=== PATIENT | female | born 1965 | race African-American/Black ===

== ENCOUNTER 2019-02-08 06:56 | Emergency (ER) | payer MEDICAID ==
[~2019-02-08] VITALS: Ht 162.6 cm; Wt 145.1 kg
[~2019-02-08 06:56] MED LIST: ALL100T PO; ASPI81TA10 PO; FURO40TA4 PO; LORA10CA12 PO; LOSA-46 PO; METF-370 PO; METO-169 PO; POTA10TA51 PO; SIMV-8 PO
[2019-02-08 07:05] VITALS: BP 137/54
== END 2019-02-08 08:06 | disposition home or self-care (01) ==
LOC: ER 07:01
DX: H10.31 Unspecified acute conjunctivitis, right eye (principal); E11.9 Type 2 diabetes mellitus without complications; E78.5 Hyperlipidemia, unspecified; I10 Essential (primary) hypertension; F17.200 Nicotine dependence, unspecified, uncomplicated; Z79.899 Other long term (current) drug therapy

== ENCOUNTER 2021-09-26 01:36 | Inpatient (IN) | payer OTHER, MEDICAID ==
[~2021-09-26] VITALS: Ht 162.6 cm; Wt 152.2 kg
[~2021-09-26 01:36] MED LIST changes: -LOSA-46 PO; +LOSA-69 PO; -METO-169 PO; +METO-289 PO
[2021-09-26] MEDS ORDERED: predniSONE 20 MG TAB PO ONE (03:00)
[2021-09-26] MEDS ORDERED: IPRATROPIUM BROM 0.5 MG/2.5ML INH SOL NEB ONE ×2 (03:00→19:30)
[2021-09-26] MEDS ORDERED: AZITHROMYCIN 250 MG TAB PO ONE (03:00)
[2021-09-26] MEDS ORDERED: ALBUTEROL SULF 2.5 MG/0.5ML(0.5%) NEB SOLN NEB ONE ×2 (03:00→05:45)
[2021-09-26 03:09] LABS: Basophils # (auto) 0.1 10 ^3/uL (0-0.2); Basophils % (auto) 0.6 % (0.0-2.0); Eosinophils # (auto) 0.2 10 ^3/uL (0-0.8); Eosinophils % (auto) 1.8 % (0.0-7.0); Hematocrit 37.1 % (36.0-46.0); Hemoglobin 11.8 g/dL (12.2-16.2); Lymphocytes # (auto) 1.4 10 ^3/uL (0.4-5.4); Lymphocytes % (auto) 15.3 % (10.0-50.0); Mean Corpuscular Hemoglobin 27.5 pg (28.0-32.0); Mean Corpuscular Hgb Conc. 31.8 g/dL (32.0-36.0); Mean Corpuscular Volume 86.6 fL (80.0-100.0); Monocytes # (auto) 0.9 10 ^3/uL (0-1.3); Monocytes % (auto) 9.6 % (0.0-12.0); Neutrophils # (auto) 6.7 10 ^3/uL (1.6-8.6); Neutrophils % (auto) 72.7 % (37.0-80.0); Nucleated Red Blood Cells % 0.2 %; Red Blood Cells 4.28 10^6/uL (4.0-5.20); White Blood Cell 9.2 10^3/uL (4.4-10.8)
[2021-09-26 03:15] LABS: Red Cell Distribution Width 20.3 % (11.8-14.3)
[2021-09-26] MEDS ORDERED: ACETAMINOPHEN 325 MG TAB PO ONE (03:15)
[2021-09-26 03:24] LABS: Potassium 4.3 mmol/L (3.5-5.1)
[2021-09-26 03:28] LABS: Albumin 3.1 g/dL (3.4-5.0); BUN/Creatinine Ratio 17.8; Calcium 8.8 mg/dL (8.5-10.1)
[2021-09-26 04:22] LABS: Bilirubin, Total 0.6 mg/dL (0.2-1.0); Total Protein 7.8 g/dL (6.4-8.2)
[2021-09-26] MEDS ORDERED: cefTRIAXone 1GM/50ML D5W 50 ML IV ONE (05:45)
[2021-09-26] MEDS ORDERED: IPRATROPIUM BROM 0.5 MG/2.5ML INH SOL ONE (05:53)
[2021-09-26] MEDS ORDERED: MORPHINE SULFATE INJECTION 2 MG/ML SYRG IV PRN ×2 (10:45→19:30)
[2021-09-26] MEDS ORDERED: NITROGLYCERIN 0.4 MG SL TAB SL PRN (10:45)
[2021-09-26] MEDS ORDERED: DEXTROSE (50%) 50ML SYRG IV PRN (14:15)
[2021-09-26] MEDS ORDERED: APIX5TAB PO (15:52)
[2021-09-26 16:00] VITALS: BP 93/58
[2021-09-26] MEDS: ACCU-CHEK COMFORT CURVE STRIP VI SCH ×2 (17:00→22:40)
[2021-09-26] MEDS: InsuLIN REG 1unit/0.01ml Soln (100units/ml) SC SCH ×2 (17:00→22:00)
[2021-09-26 18:28] VITALS: BP 113/62
[2021-09-26] MEDS ORDERED: MULTIPLE VITAMINS W/ MINERALS TAB PO ONE (19:30)
[2021-09-26] MEDS ORDERED: PANTOPRAZOLE 40 MG/10 ML VIAL INJ IV ONE (19:30)
[2021-09-26] MEDS ORDERED: METOCLOPRAMIDE HCL 5MG/ml INJ 2ml VIAL IV PRN (19:30)
[2021-09-26] MEDS ORDERED: DOCUSATE SOD 100 MG CAP PO PRN (19:30)
[2021-09-26] MEDS ORDERED: ONDANSETRON HCL 4 MG/2 ML VIAL IV PRN (19:30)
[2021-09-26] MEDS ORDERED: THIAMINE 100mg/ml INJ (200mg/2ml VIAL) IV ONE (19:30)
[2021-09-26] MEDS ORDERED: LORazepam 0.5 MG TAB PO PRN (19:30)
[2021-09-26] MEDS ORDERED: METOPROLOL SUCCINATE XL 50 MG TAB PO ONE (19:30)
[2021-09-26] MEDS ORDERED: SUCRALFATE 1 GM/10 ML ORAL SUSP PO ONE (19:30)
[2021-09-26] MEDS ORDERED: FOLIC ACID 1 MG TAB PO ONE (19:30)
[2021-09-26] MEDS ORDERED: LACTULOSE 20Gm/30ML SOLN PO PRN (19:30)
[2021-09-26 22:00] VITALS: BP 135/65
[2021-09-26] MEDS ORDERED: IPRATROPIUM BROM 0.5 MG/2.5ML INH SOL NEB SCH (22:00)
[2021-09-26] MEDS: PANTOPRAZOLE 40 MG/10 ML VIAL INJ IV SCH (22:38)
[2021-09-26] MEDS: APIXABAN 5 MG TAB PO SCH (22:39)
[2021-09-26] MEDS: SUCRALFATE 1 GM/10 ML ORAL SUSP PO SCH (22:39)
[2021-09-26] MEDS: ATORVASTATIN 20 MG TAB PO SCH (22:40)
[2021-09-26] MEDS: ISOSORBIDE MONONITRATE 20 MG TAB PO SCH (22:54)
[2021-09-26] MEDS: FUROSEMIDE 20 MG/2 ML VIAL IV SCH (23:07)
[2021-09-26] MEDS: POTASSIUM CHL 20 Meq TABLET PO SCH (23:08)
[2021-09-26 23:52] LABS: INR 1.1 (0.9-1.15); Partial Thromboplastin Time 26.5 sec (23.6-33.0)
[2021-09-26 23:54] LABS: Magnesium 2.6 mg/dL (1.6-2.6); Phosphorus 3.4 mg/dL (2.5-4.90)
[2021-09-27] MEDS ORDERED: IPRATROPIUM BROM 0.5 MG/2.5ML INH SOL NEB SCH
[2021-09-27] MEDS ORDERED: IPRATROPIUM BROM 0.5 MG/2.5ML INH SOL NEB PRN (01:00)
[2021-09-27] MEDS ORDERED: ALBUTEROL SULF 2.5 MG/0.5ML(0.5%) NEB SOLN NEB PRN (01:00)
[2021-09-27 05:00] VITALS: BP 117/69
[2021-09-27 05:53] LABS: Basophils # (auto) 0.1 10 ^3/uL (0-0.2); Basophils % (auto) 1.3 % (0.0-2.0); Eosinophils # (auto) 0.1 10 ^3/uL (0-0.8); Eosinophils % (auto) 1.9 % (0.0-7.0); Hematocrit 35.8 % (36.0-46.0); Hemoglobin 11.5 g/dL (12.2-16.2); Lymphocytes # (auto) 1.3 10 ^3/uL (0.4-5.4); Lymphocytes % (auto) 18.6 % (10.0-50.0); Mean Corpuscular Hemoglobin 27.7 pg (28.0-32.0); Mean Corpuscular Hgb Conc. 32.2 g/dL (32.0-36.0); Monocytes # (auto) 0.7 10 ^3/uL (0-1.3); Monocytes % (auto) 9.9 % (0.0-12.0); Neutrophils # (auto) 4.7 10 ^3/uL (1.6-8.6); Neutrophils % (auto) 68.3 % (37.0-80.0); Nucleated Red Blood Cells % 0.1 %; Red Blood Cells 4.17 10^6/uL (4.0-5.20); Red Cell Distribution Width 19.9 % (11.8-14.3); White Blood Cell 6.9 10^3/uL (4.4-10.8)
[2021-09-27] MEDS: SUCRALFATE 1 GM/10 ML ORAL SUSP PO SCH ×2 (06:11→11:52)
[2021-09-27] MEDS: ACCU-CHEK COMFORT CURVE STRIP VI SCH ×4 (06:11→22:12)
[2021-09-27] MEDS: FUROSEMIDE 20 MG/2 ML VIAL IV SCH ×2 (06:11→17:34)
[2021-09-27] MEDS: InsuLIN REG 1unit/0.01ml Soln (100units/ml) SC SCH ×4 (06:11→22:00)
[2021-09-27 06:12] LABS: INR 1.11 (0.9-1.15); Partial Thromboplastin Time 26.2 sec (23.6-33.0)
[2021-09-27 06:15] LABS: Albumin 2.9 g/dL (3.4-5.0); Calcium 8.6 mg/dL (8.5-10.1); Magnesium 2.6 mg/dL (1.6-2.6); Potassium 4.3 mmol/L (3.5-5.1)
[2021-09-27 06:23] LABS: BUN/Creatinine Ratio 19.4; Bilirubin, Total 0.5 mg/dL (0.2-1.0); CRP High Sensitivity 4.51 mg/dL (< 0.3); Phosphorus 3.2 mg/dL (2.5-4.90); Total Protein 7.8 g/dL (6.4-8.2); Uric Acid 8.5 mg/dL (2.6-6.0)
[2021-09-27 06:57] LABS: Thyroid Stimulating Hormone 1.12 uIU/mL (0.358-3.74)
[2021-09-27 07:58] LABS: Alcohol, Urine < 3.0 mg/dL (0-10); Amphetamine Screen, Urine NEGATIVE (NEGATIVE); Barbiturate Scree,Urine NEGATIVE (NEGATIVE); Benzodiazephine Screen, Urine NEGATIVE (NEGATIVE); Cannabinoid Screen, Urine NEGATIVE (NEGATIVE); Cocaine Screen, Urine NEGATIVE (NEGATIVE); Opiate Scree,Urine NEGATIVE (NEGATIVE); Phencyclidine Screen, Urine NEGATIVE (NEGATIVE)
[2021-09-27 09:00] VITALS: BP 120/69
[2021-09-27] MEDS: ALLOPURINOL 100 MG TAB PO SCH (09:08)
[2021-09-27] MEDS: ISOSORBIDE MONONITRATE 20 MG TAB PO SCH ×2 (09:08→22:00)
[2021-09-27] MEDS: ASPirin 81 mg TAB PO SCH (09:09)
[2021-09-27] MEDS: PANTOPRAZOLE 40 MG/10 ML VIAL INJ IV SCH (09:11)
[2021-09-27] MEDS: APIXABAN 5 MG TAB PO SCH ×2 (09:11→22:11)
[2021-09-27] MEDS: POTASSIUM CHL 20 Meq TABLET PO SCH ×2 (09:11→22:11)
[2021-09-27] MEDS: cefTRIAXone 1GM/50ML D5W 50 ML IV SCH (09:12)
[2021-09-27] MEDS ORDERED: FURO40TA4 PO (09:34)
[2021-09-27] MEDS ORDERED: METO-159 PO (09:34)
[2021-09-27] MEDS ORDERED: MULTIPLE VITAMINS W/ MINERALS TAB PO SCH (10:00)
[2021-09-27] MEDS ORDERED: FOLIC ACID 1 MG TAB PO SCH (10:00)
[2021-09-27] MEDS ORDERED: CHOLECALCIFEROL (VITD3) 2,000 UNIT CAP/TAB PO SCH (10:00)
[2021-09-27] MEDS ORDERED: THIAMINE HCL 100 MG TAB PO SCH (10:00)
[2021-09-27] MEDS ORDERED: CYANOCOBALAMIN 500 MCG TAB PO SCH (10:00)
[2021-09-27] MEDS: AZITHROMYCIN 500MG/ 250ML 250 ML IV SCH (10:05)
[2021-09-27] MEDS: HYDROcodone-ACET 5/325MG TAB PO PRN (10:06)
[2021-09-27] MEDS: METOPROLOL SUCCINATE XL 50 MG TAB PO SCH (10:10)
[2021-09-27] MEDS: LOSARTAN POTASSIUM 25 MG TAB PO SCH (10:11)
[2021-09-27 13:00] VITALS: BP 158/73
[2021-09-27] MEDS: guaiFENesin-DM 100/10mg/5ml SYR PO PRN ×2 (14:23→22:30)
[2021-09-27 17:00] VITALS: BP_SYST 105; BP_SYST 158; BP_DIAS 68; BP_DIAS 73
[2021-09-27 22:00] VITALS: BP 97/64
[2021-09-27] MEDS: ATORVASTATIN 20 MG TAB PO SCH (22:11)
[2021-09-28 05:00] VITALS: BP 137/79
[2021-09-28] MEDS: ACCU-CHEK COMFORT CURVE STRIP VI SCH ×3 (06:14→16:37)
[2021-09-28] MEDS: FUROSEMIDE 20 MG/2 ML VIAL IV SCH ×2 (06:14→17:21)
[2021-09-28] MEDS: InsuLIN REG 1unit/0.01ml Soln (100units/ml) SC SCH ×3 (06:20→16:37)
[2021-09-28] MEDS: HYDROcodone-ACET 5/325MG TAB PO PRN (06:24)
[2021-09-28 08:00] VITALS: BP 85/58
[2021-09-28 09:00] VITALS: BP 85/58
[2021-09-28] MEDS: LOSARTAN POTASSIUM 25 MG TAB PO SCH (09:37)
[2021-09-28] MEDS: cefTRIAXone 1GM/50ML D5W 50 ML IV SCH (09:37)
[2021-09-28] MEDS: APIXABAN 5 MG TAB PO SCH (09:37)
[2021-09-28] MEDS: ASPirin 81 mg TAB PO SCH (09:37)
[2021-09-28] MEDS: POTASSIUM CHL 20 Meq TABLET PO SCH (09:38)
[2021-09-28] MEDS: METOPROLOL SUCCINATE XL 50 MG TAB PO SCH (09:38)
[2021-09-28] MEDS: ISOSORBIDE MONONITRATE 20 MG TAB PO SCH (09:38)
[2021-09-28] MEDS: ALLOPURINOL 100 MG TAB PO SCH (09:39)
[2021-09-28] MEDS: guaiFENesin-DM 100/10mg/5ml SYR PO PRN ×2 (09:39→16:46)
[2021-09-28 09:59] LABS: BUN/Creatinine Ratio 17.6; Calcium 9.2 mg/dL (8.5-10.1); Potassium 4.1 mmol/L (3.5-5.1)
[2021-09-28] MEDS ORDERED: PANTOPRAZOLE 40 MG TAB PO SCH (10:00)
[2021-09-28] MEDS: AZITHROMYCIN 500MG/ 250ML 250 ML IV SCH (10:40)
[2021-09-28 13:00] VITALS: BP 102/65
[2021-09-28] MEDS ORDERED: DEXT1SYP9 PO (15:59)
[2021-09-28 17:00] VITALS: BP 96/48
[2021-09-28 18:17] VITALS: BP 96/48
== END 2021-09-28 19:10 | disposition home or self-care (01) | DRG 291 ==
LOC: ER 01:40 → TELE 10:38 → EAST 13:42
PROVIDERS: ADMIT Hospitalist; ATTEND Internal Medicine
DX: I13.0 Hypertensive heart and chronic kidney disease with heart failure and stage 1 through stage 4 chronic kidney disease, or unspecified chronic kidney disease (principal); I50.43 Acute on chronic combined systolic (congestive) and diastolic (congestive) heart failure; N17.0 Acute kidney failure with tubular necrosis; J96.01 Acute respiratory failure with hypoxia; Z68.43 Body mass index [BMI] 50.0-59.9, adult; I35.0 Nonrheumatic aortic (valve) stenosis; I48.0 Paroxysmal atrial fibrillation; I44.0 Atrioventricular block, first degree; N18.2 Chronic kidney disease, stage 2 (mild); M1A.9XX0 Chronic gout, unspecified, without tophus (tophi); J20.9 Acute bronchitis, unspecified; D64.9 Anemia, unspecified; E11.22 Type 2 diabetes mellitus with diabetic chronic kidney disease; E66.01 Morbid (severe) obesity due to excess calories; E78.5 Hyperlipidemia, unspecified; F17.200 Nicotine dependence, unspecified, uncomplicated; I34.2 Nonrheumatic mitral (valve) stenosis; I25.10 Atherosclerotic heart disease of native coronary artery without angina pectoris; Z79.01 Long term (current) use of anticoagulants; Z82.49 Family history of ischemic heart disease and other diseases of the circulatory system; Z83.3 Family history of diabetes mellitus; Z86.16 Personal history of COVID-19; Z91.19 Patient's noncompliance with other medical treatment and regimen; Z79.84 Long term (current) use of oral hypoglycemic drugs
CPT/HCPCS: 36415; 36600; 71045; 80048; 80053; 80061; 80307; 82728; 82805; 82962; 83036; 83605; 83615; 83735; 83880; 84100; 84443; 84484; 84550; 85025; 85379; 85610; 85652; 85730; 86141; 87040; 87070; 87086; 87205; 93005; 93306; 93886; 94640; 96365; 99291; C9113; G0378; J0696; J1815

== ENCOUNTER 2022-12-03 08:04 | Inpatient (IN) | payer OTHER, MEDICAID ==
[~2022-12-03] VITALS: Ht 162.6 cm; Wt 149.3 kg
[~2022-12-03 08:04] MED LIST changes: +APIX5TAB PO; +DEXT1SYP9 PO; +METO-159 PO
[2022-12-03] MEDS ORDERED: FUROSEMIDE 40 MG/4 ML VIAL IV ONE (08:45)
[2022-12-03 08:54] LABS: Basophils # (auto) 0.1 10 ^3/uL (0-0.2); Basophils % (auto) 2.4 % (0.0-2.0); Eosinophils # (auto) 0.5 10 ^3/uL (0-0.8); Eosinophils % (auto) 10.3 % (0.0-7.0); Hematocrit 48.2 % (36.0-46.0); Hemoglobin 15.3 g/dL (12.2-16.2); Lymphocytes # (auto) 1.2 10 ^3/uL (0.4-5.4); Lymphocytes % (auto) 24.3 % (10.0-50.0); Mean Corpuscular Hemoglobin 27.2 pg (28.0-32.0); Mean Corpuscular Hgb Conc. 31.7 g/dL (32.0-36.0); Mean Corpuscular Volume 85.7 fL (80.0-100.0); Monocytes # (auto) 0.5 10 ^3/uL (0-1.3); Monocytes % (auto) 9.5 % (0.0-12.0); Neutrophils # (auto) 2.6 10 ^3/uL (1.6-8.6); Neutrophils % (auto) 53.5 % (37.0-80.0); Nucleated Red Blood Cells % 0.3 %; Red Blood Cells 5.63 10^6/uL (4.0-5.20); White Blood Cell 4.9 10^3/uL (4.4-10.8)
[2022-12-03 08:55] LABS: Red Cell Distribution Width 20.3 % (11.8-14.3)
[2022-12-03 08:57] LABS: Albumin 3.5 g/dL (3.4-5.0); Calcium 8.8 mg/dL (8.5-10.1); Magnesium 2.2 mg/dL (1.6-2.6); Potassium 4.1 mmol/L (3.5-5.1)
[2022-12-03 08:58] LABS: INR 1.9 (0.9-1.15); Partial Thromboplastin Time 30.9 sec (24.6-33.4)
[2022-12-03 09:01] LABS: BUN/Creatinine Ratio 17.3 (10.0-20.0); Bilirubin, Total 0.5 mg/dL (0.2-1.0); Total Protein 7.6 g/dL (6.4-8.2)
[2022-12-03 10:55] LABS: Urine Bacteria FEW /hpf (None Seen); Urine Blood Negative /uL (Negative); Urine WBC <1 /hpf (0 - 5)
[2022-12-03] MEDS ORDERED: NITROGLYCERIN 0.4 MG SL TAB SL PRN (11:00)
[2022-12-03] MEDS ORDERED: MORPHINE SULFATE INJ 2 MG/ml SYRG IV PRN (11:00)
[2022-12-03] MEDS ORDERED: ACETAMINOPHEN 325 MG TAB PO PRN (11:00)
[2022-12-03] MEDS ORDERED: ONDANSETRON HCL 4 MG/2 ML VIAL IV PRN (11:00)
[2022-12-03] MEDS ORDERED: DEXTROSE (50%) 50ML SYRG IV PRN (11:00)
[2022-12-03] MEDS: InsuLIN REG 1unit/0.01ml Soln (100units/ml) SC SCH ×3 (11:30→22:00)
[2022-12-03] MEDS: ACCU-CHEK COMFORT CURVE STRIP VI SCH ×3 (11:54→22:00)
[2022-12-03] MEDS ORDERED: ALBUTEROL SULF 2.5 MG/0.5ML(0.5%) NEB SOLN NEB SCH ×2 (12:00)
[2022-12-03] MEDS ORDERED: hydrALAZINE HCL 20 MG/ML VL IV PRN (12:00)
[2022-12-03] MEDS ORDERED: IPRATROPIUM BROM 0.5 MG/2.5ML INH SOL NEB SCH ×2 (12:00)
[2022-12-03 13:22] VITALS: BP 134/66
[2022-12-03] MEDS: ATORVASTATIN 20 MG TAB PO SCH (22:46)
[2022-12-03] MEDS: ALLOPURINOL 100 MG TAB PO SCH (22:46)
[2022-12-04] VITALS (7 sets, daily range): BP systolic 103–150; BP diastolic 44–74
[2022-12-04 05:55] LABS: Hematocrit 44.5 % (36.0-46.0); Hemoglobin 14.1 g/dL (12.2-16.2); Mean Corpuscular Hemoglobin 27.4 pg (28.0-32.0); Mean Corpuscular Hgb Conc. 31.8 g/dL (32.0-36.0); Mean Corpuscular Volume 86.3 fL (80.0-100.0); Red Blood Cells 5.16 10^6/uL (4.0-5.20); White Blood Cell 5.6 10^3/uL (4.4-10.8)
[2022-12-04] MEDS: InsuLIN REG 1unit/0.01ml Soln (100units/ml) SC SCH ×4 (05:56→22:00)
[2022-12-04] MEDS: ACCU-CHEK COMFORT CURVE STRIP VI SCH ×4 (05:56→21:58)
[2022-12-04 06:17] LABS: Calcium 8.9 mg/dL (8.5-10.1); Potassium 3.7 mmol/L (3.5-5.1)
[2022-12-04 06:22] LABS: Albumin 3.4 g/dL (3.4-5.0); BUN/Creatinine Ratio 23.5 (10.0-20.0); Bilirubin, Total 0.5 mg/dL (0.2-1.0)
[2022-12-04 06:23] LABS: Red Cell Distribution Width 20.2 % (11.8-14.3)
[2022-12-04 06:25] LABS: Band Neutrophils % (manual) 0; Basophils % (manual) 0 (0.0-2.0); Blast Cells 0; Metamyelocytes % 0; Myelocytes % 0; Promyelocytes % 0; Reactive Lymphocytes 0
[2022-12-04] MEDS: PANTOPRAZOLE 40 MG TAB PO SCH (09:49)
[2022-12-04] MEDS: ALLOPURINOL 100 MG TAB PO SCH ×2 (09:50→21:57)
[2022-12-04] MEDS: METOPROLOL SUCCINATE XL 50 MG TAB PO SCH (09:51)
[2022-12-04] MEDS: ASPirin-EC 81 mg tab PO SCH (09:52)
[2022-12-04] MEDS: LOSARTAN POTASSIUM 50 MG TAB PO SCH (09:52)
[2022-12-04] MEDS: LORATADINE 10 MG TAB PO SCH (09:52)
[2022-12-04] MEDS: FUROSEMIDE 40 MG/4 ML VIAL IV SCH (09:52)
[2022-12-04] MEDS ORDERED: ENOXAPARIN SOD 40 MG/0.4 ML SYRINGE SC SCH (10:00)
[2022-12-04 11:37] LABS: INR 1.51 (0.9-1.15); Partial Thromboplastin Time 30.8 sec (24.6-33.4)
[2022-12-04] MEDS ORDERED: IPRATROPIUM BROM 0.5 MG/2.5ML INH SOL NEB PRN (12:00)
[2022-12-04] MEDS ORDERED: ALBUTEROL SULF 2.5 MG/0.5ML(0.5%) NEB SOLN NEB PRN (12:00)
[2022-12-04 12:15] LABS: Eosinophils % (manual) 3 (0-7); Lymphocytes % (manual) 31 (10.0-50.0); Monocytes % (manual) 20 (0-12)
[2022-12-04] MEDS ORDERED: WARFARIN SODIUM 5 MG TAB PO ONE (17:00)
[2022-12-04] MEDS: ATORVASTATIN 20 MG TAB PO SCH (21:57)
[2022-12-05 00:10] VITALS: BP 133/60
[2022-12-05 05:00] VITALS: BP 157/76
[2022-12-05 05:40] LABS: Basophils # (auto) 0 10 ^3/uL (0-0.2); Basophils % (auto) 0.9 % (0.0-2.0); Eosinophils # (auto) 0.4 10 ^3/uL (0-0.8); Eosinophils % (auto) 9.4 % (0.0-7.0); Hematocrit 45.7 % (36.0-46.0); Hemoglobin 14.7 g/dL (12.2-16.2); Lymphocytes # (auto) 1.1 10 ^3/uL (0.4-5.4); Lymphocytes % (auto) 26.6 % (10.0-50.0); Mean Corpuscular Hemoglobin 27.7 pg (28.0-32.0); Mean Corpuscular Volume 86.5 fL (80.0-100.0); Monocytes # (auto) 0.7 10 ^3/uL (0-1.3); Monocytes % (auto) 16.6 % (0.0-12.0); Neutrophils % (auto) 46.5 % (37.0-80.0); Nucleated Red Blood Cells % 0.4 %; Red Blood Cells 5.29 10^6/uL (4.0-5.20); White Blood Cell 4.3 10^3/uL (4.4-10.8)
[2022-12-05 05:55] LABS: Potassium 4.1 mmol/L (3.5-5.1)
[2022-12-05 06:00] LABS: BUN/Creatinine Ratio 19.1 (10.0-20.0); Calcium 8.9 mg/dL (8.5-10.1)
[2022-12-05 09:00] VITALS: BP 148/55
[2022-12-05] MEDS: PANTOPRAZOLE 40 MG TAB PO SCH (09:08)
[2022-12-05] MEDS: ALLOPURINOL 100 MG TAB PO SCH (09:08)
[2022-12-05] MEDS: ASPirin-EC 81 mg tab PO SCH (09:08)
[2022-12-05] MEDS: LORATADINE 10 MG TAB PO SCH (09:08)
[2022-12-05] MEDS: FUROSEMIDE 40 MG/4 ML VIAL IV SCH (09:10)
[2022-12-05] MEDS: LOSARTAN POTASSIUM 50 MG TAB PO SCH (09:10)
[2022-12-05] MEDS: METOPROLOL SUCCINATE XL 50 MG TAB PO SCH (09:10)
[2022-12-05 09:43] LABS: INR 1.37 (0.9-1.15); Partial Thromboplastin Time 29.2 sec (24.6-33.4)
[2022-12-05 10:51] VITALS: BP 157/76
== END 2022-12-05 11:45 | disposition home or self-care (01) | DRG 291 ==
LOC: ER 08:04 → TELE 11:15 → TELE-EAST 23:34 → TELE 12-04 10:32 → TELE-EAST 12-04 10:33
PROVIDERS: ADMIT Nurse Practitioner Family; ATTEND Internal Medicine Pulmonary Disease
PROC: 5A09357 Assistance with Respiratory Ventilation, Less than 24 Consecutive Hours, Continuous Positive Airway Pressure (ICD-10-PCS; principal; 2022-12-04)
DX: I13.0 Hypertensive heart and chronic kidney disease with heart failure and stage 1 through stage 4 chronic kidney disease, or unspecified chronic kidney disease (principal); I50.43 Acute on chronic combined systolic (congestive) and diastolic (congestive) heart failure; J44.1 Chronic obstructive pulmonary disease with (acute) exacerbation; N17.9 Acute kidney failure, unspecified; Z68.43 Body mass index [BMI] 50.0-59.9, adult; J96.10 Chronic respiratory failure, unspecified whether with hypoxia or hypercapnia; Z20.822 Contact with and (suspected) exposure to COVID-19; I25.10 Atherosclerotic heart disease of native coronary artery without angina pectoris; E11.22 Type 2 diabetes mellitus with diabetic chronic kidney disease; E66.01 Morbid (severe) obesity due to excess calories; E78.5 Hyperlipidemia, unspecified; G47.30 Sleep apnea, unspecified; I05.0 Rheumatic mitral stenosis; I44.0 Atrioventricular block, first degree; I48.0 Paroxysmal atrial fibrillation; N18.9 Chronic kidney disease, unspecified; G47.33 Obstructive sleep apnea (adult) (pediatric); M10.9 Gout, unspecified; Z79.01 Long term (current) use of anticoagulants; Z82.49 Family history of ischemic heart disease and other diseases of the circulatory system; Z83.3 Family history of diabetes mellitus; Z86.711 Personal history of pulmonary embolism; Z84.1 Family history of disorders of kidney and ureter
CPT/HCPCS: 36415; 71045; 80048; 80053; 81001; 82962; 83735; 83880; 84484; 85007; 85025; 85027; 85379; 85610; 85730; 87426; 87804; 93005; 93306; 94660; 96374; 99291; G0378